=== PATIENT | male | born 1950 | race Caucasian/White ===

== ENCOUNTER 2016-12-17 08:39 | Day surgery (SDC) | payer MEDICARE, BC ==
[~2016-12-17 08:39] MED LIST: Cefuroxime 10 MG/ML SYRINGE EYERT SCH; Lidocaine 1% PF 2 ML SDV INJECT SCH; Pilocarpine 4% Ophth Soln 15 ML Bot EYERT SCH; Proparacaine 0.5% Ophth Soln 15 ML Bottle EYEBOTH SCH; Tetracaine 0.5% 2 ML Bottle EYERT SCH
[2016-12-17] MEDS: Polymyxin B/Trimethoprim 10 ML Bottle EYERT SCH ×3 (09:17→10:52)
[2016-12-17] MEDS: Brimonidine 0.2% Ophth Soln 5 ML Bottle EYERT SCH ×3 (09:23→10:52)
[2016-12-17] MEDS: Phenylephrine 2.5% Ophth Soln 2 ML Bot EYERT SCH ×5 (09:27→10:38)
--- NOTE | 2016-12-17 10:14 | PCM.PREANE ---
Preanesthetic Assessment - Anesthesia/Transfusion/Family Hx Anesthesia History: Prior Anesthesia Without Reaction Family History of Anesthesia Reaction: No Transfusion History: No Prior Transfusion(s) Intubation History: Unknown - Review of Systems General: No Symptoms Pulmonary: No Symptoms Cardiovascular: No Symptoms Gastrointestinal: No symptoms Neurological: No Symptoms Other: Reports: None - Physical Assessment NPO Status Date: 12/16/16 NPO Status Time: 20:00 O2 Sat by Pulse Oximetry: 96 Respiratory Rate: 20 Vital Signs: Last Vital Signs Temp 36.2 C 12/17/16 09:10 Pulse 61 12/17/16 09:10 Resp 20 12/17/16 09:10 BP 129/73 12/17/16 09:10 Pulse Ox 96 12/17/16 09:10 Height: 1.93 m Weight: 97.522 kg ASA Class: 2 Mental Status: Alert & Oriented x3 Airway Class: Mallampati = 1 Dentition: Reports: Normal Dentition Thyro-Mental Finger Breadths: 3 Mouth Opening Finger Breadths: 5 ROM/Head Extension: Other Lungs: Clear to auscultation, Normal respiratory effort, Rhonchi Cardiovascular: Regular Rate, Regular Rhythm - Allergies Allergies/Adverse Reactions: Allergies Allergy/AdvReac Type Severity Reaction Status Date / Time hay fever Allergy Cannot Uncoded 12/16/16 13:22 Remember - Blood Blood Available: No - Anesthesia Plan Pre-Op Medication Ordered: None - Acknowledgements Anesthesia Type Planned: MAC Pt an Appropriate Candidate for the Planned Anesthesia: Yes Alternatives and Risks of Anesthesia Discussed w Pt/Guardian: Yes Pt/Guardian Understands and Agrees with Anesthesia Plan: Yes PreAnesthesia Questionnaire HEENT History: Reports: Other (see below) Other HEENT History: postnasal drip, nasal congestion Genitourinary History: Reports: BPH - SUBSTANCE USE Smoking Status *Q: Never Smoker Tobacco Use Within Last Twelve Months: Smokeless Tobacco Days Per Week of Alcohol Use: 0 - HOME MEDS Home Medications: Home Meds Aspirin 81 mg PO DAILY 12/16/16 [History] Finasteride 5 mg PO DAILY 12/16/16 [History] Moxifloxacin [Vigamox 0.5% Ophth Soln] 1 drop EYEBOTH ASDIRECTED 12/16/16 [ History] Multivitamin [Daily Amada] 1 tab PO DAILY 12/16/16 [History] Tamsulosin [Flomax] 0.4 mg PO DAILY 12/16/16 [History] - CURRENT (IN HOUSE) MEDS Current Meds: Current Medications Brimonidine Tartrate (Alphagan 0.2% Ophth Soln) 0 ml EYERT ASDIRECTED BINDU Stop: 12/17/16 18:00 Last Admin: 12/17/16 10:00 Dose: 1 drop Cefuroxime Sodium (Zinacef) 0 mg EYERT ASDIRECTED BINDU Stop: 12/17/16 18:00 Lidocaine HCl (Xylocaine-Mpf 1%) 10 ml INJECT ASDIRECTED BINDU Stop: 12/17/16 18:00 Phenylephrine HCl (Efraín-Synephrine 2.5% Ophth Soln) 0 ml EYERT ASDIRECTED BINDU Stop: 12/17/16 18:00 Last Admin: 12/17/16 10:07 Dose: 1 drop Pilocarpine HCl (Pilocar 4% Ophth Soln) 0 ml EYERT ASDIRECTED BINDU Stop: 12/17/16 18:00 Polymyxin/Trimethoprim Sulfate (Polytrim Ophth Soln) 0 ml EYERT ASDIRECTED BINDU Stop: 12/17/16 18:00 Last Admin: 12/17/16 09:55 Dose: 1 drop Proparacaine HCl (Proparacaine 0.5% Ophth Soln) 0 ml EYEBOTH ASDIRECTED BINDU Stop: 12/17/16 18:00 Tetracaine (Pontocaine 0.5% Ophth Drops) 0 ml EYERT ASDIRECTED BINDU Stop: 12/17/16 18:00 Tropicamide (Mydriacyl 1% Ophth Soln) 0 ml EYERT ASDIRECTED BINDU Stop: 12/17/16 18:00 Last Admin: 12/17/16 09:50 Dose: 1 drop
--- NOTE | 2016-12-17 10:49 | PCM48HPAN ---
Post Anesthesia Note - EVALUATION WITHIN 48HRS OF ANESTHETIC Vital Signs in Normal Range: Yes Patient Participated in Evaluation: Yes Respiratory Function Stable: Yes Airway Patent: Yes Cardiovascular Function Stable: Yes Hydration Status Stable: Yes Pain Control Satisfactory: Yes Nausea and Vomiting Control Satisfactory: Yes Mental Status Recovered: Yes
[2016-12-17 13:02] VITALS: BP 125/64
== END 2016-12-17 11:05 | disposition home or self-care (01) ==
LOC: JD.SDS 08:39
PROVIDERS: ATTEND Ophthalmology
PROC: 08RJ3JZ Replacement of Right Lens with Synthetic Substitute, Percutaneous Approach (ICD-10-PCS; principal; 2016-12-17)
DX: H25.811 Combined forms of age-related cataract, right eye (principal); H35.40 Unspecified peripheral retinal degeneration; H02.831 Dermatochalasis of right upper eyelid; H02.834 Dermatochalasis of left upper eyelid; I10 Essential (primary) hypertension; N40.0 Benign prostatic hyperplasia without lower urinary tract symptoms; F17.290 Nicotine dependence, other tobacco product, uncomplicated; Z83.518 Family history of other specified eye disorder; Z79.82 Long term (current) use of aspirin; Z91.048 Other nonmedicinal substance allergy status
CPT/HCPCS: 66984; A9270; J0697; V2632

== ENCOUNTER 2017-01-14 07:17 | Day surgery (SDC) | payer MEDICARE, BC ==
[~2017-01-14 07:17] MED LIST changes: +Cefuroxime 10 MG/ML SYRINGE EYELF SCH; -Cefuroxime 10 MG/ML SYRINGE EYERT SCH; +Pilocarpine 4% Ophth Soln 15 ML Bot EYELF SCH; -Pilocarpine 4% Ophth Soln 15 ML Bot EYERT SCH; -Proparacaine 0.5% Ophth Soln 15 ML Bottle EYEBOTH SCH; +Tetracaine 0.5% 2 ML Bottle EYELF SCH; -Tetracaine 0.5% 2 ML Bottle EYERT SCH
[2017-01-14] MEDS: Polymyxin B/Trimethoprim 10 ML Bottle EYELF SCH ×3 (07:29→08:58)
[2017-01-14] MEDS: Brimonidine 0.2% Ophth Soln 5 ML Bottle EYELF SCH ×3 (07:33→08:58)
[2017-01-14] MEDS: Phenylephrine 2.5% Ophth Soln 2 ML Bot EYELF SCH ×5 (07:37→08:40)
--- NOTE | 2017-01-14 07:37 | PCM.PREANE ---
Preanesthetic Assessment - Anesthesia/Transfusion/Family Hx Anesthesia History: Prior Anesthesia Without Reaction Family History of Anesthesia Reaction: No Transfusion History: No Prior Transfusion(s) Intubation History: Unknown - Review of Systems General: No Symptoms Pulmonary: No Symptoms Cardiovascular: No Symptoms, Other (HTN) Gastrointestinal: Other (reflux on occasion) Neurological: No Symptoms - Physical Assessment NPO Status Date: 01/13/17 NPO Status Time: 19:00 Pulse: 59 O2 Sat by Pulse Oximetry: 98 Respiratory Rate: 16 Blood Pressure: 120/76 Temperature: 36.2 C Height: 1.93 m Weight: 97.522 kg ASA Class: 2 Mental Status: Alert & Oriented x3 Airway Class: Mallampati = 1 Dentition: Reports: Normal Dentition Thyro-Mental Finger Breadths: 3 Mouth Opening Finger Breadths: 3 ROM/Head Extension: Full Lungs: Clear to auscultation, Normal respiratory effort Cardiovascular: Regular Rate, Regular Rhythm - Allergies Allergies/Adverse Reactions: Allergies Allergy/AdvReac Type Severity Reaction Status Date / Time hay fever Allergy Cannot Uncoded 01/13/17 15:15 Remember - Blood Blood Available: No Product(s) Available: None - Anesthesia Plan Pre-Op Medication Ordered: None - Acknowledgements Anesthesia Type Planned: MAC Pt an Appropriate Candidate for the Planned Anesthesia: Yes Alternatives and Risks of Anesthesia Discussed w Pt/Guardian: Yes Pt/Guardian Understands and Agrees with Anesthesia Plan: Yes PreAnesthesia Questionnaire HEENT History: Reports: Other (See Below) Other HEENT History: postnasal drip, nasal congestion Genitourinary History: Reports: BPH - SUBSTANCE USE Smoking Status *Q: Never Smoker Tobacco Use Within Last Twelve Months: Smokeless Tobacco Days Per Week of Alcohol Use: 0 - HOME MEDS Home Medications: Home Meds Aspirin 81 mg PO DAILY 12/16/16 [History] Finasteride 5 mg PO DAILY 12/16/16 [History] Moxifloxacin [Vigamox 0.5% Ophth Soln] 1 drop EYEBOTH ASDIRECTED 12/16/16 [ History] Multivitamin [Daily Amada] 1 tab PO DAILY 12/16/16 [History] Tamsulosin [Flomax] 0.4 mg PO DAILY 12/16/16 [History] - CURRENT (IN HOUSE) MEDS Current Meds: Current Medications Brimonidine Tartrate (Alphagan 0.2% Ophth Soln) 0 ml EYELF ASDIRECTED BINDU Stop: 01/14/17 18:00 Cefuroxime Sodium (Zinacef) 0 mg EYELF ASDIRECTED BINDU Stop: 01/14/17 18:00 Lidocaine HCl (Xylocaine-Mpf 1%) 1 ml INJECT ASDIRECTED BINDU Stop: 01/14/17 18:00 Phenylephrine HCl (Efraín-Synephrine 2.5% Ophth Soln) 0 ml EYELF ASDIRECTED BINDU Stop: 01/14/17 18:00 Pilocarpine HCl (Pilocar 4% Ophth Soln) 0 ml EYELF ASDIRECTED BINDU Stop: 01/14/17 18:00 Polymyxin/Trimethoprim Sulfate (Polytrim Ophth Soln) 0 ml EYELF ASDIRECTED BINDU Stop: 01/14/17 18:00 Last Admin: 01/14/17 07:29 Dose: 1 drop Tropicamide (Mydriacyl 1% Ophth Soln) 0 ml EYELF ASDIRECTED BINDU Stop: 01/14/17 18:00 Discontinued Medications Tetracaine (Pontocaine 0.5% Ophth Drops) 0 ml EYELF ASDIRECTED BINDU Stop: 01/14/17 06:01
[2017-01-14] MEDS ORDERED: Tetracaine 0.5% 2 ML Bottle EYELF SCH (08:45)
[2017-01-14 09:12] VITALS: BP 127/65
== END 2017-01-14 09:10 | disposition home or self-care (01) ==
LOC: JD.SDS 07:17
PROVIDERS: ATTEND Ophthalmology
DX: H25.812 Combined forms of age-related cataract, left eye (principal); I10 Essential (primary) hypertension; Z96.1 Presence of intraocular lens; Z98.41 Cataract extraction status, right eye; Z79.899 Other long term (current) drug therapy
CPT/HCPCS: 66984; A9270; J0697; C1780

== ENCOUNTER → 2020-03-23 | Day surgery (SDC) | payer MEDICARE, BC ==
[~2020-03-23] MED LIST changes: +Brimonidine 0.2% Ophth Soln 5 ML Bottle EYELF SCH; -Cefuroxime 10 MG/ML SYRINGE EYELF SCH; -Lidocaine 1% PF 2 ML SDV INJECT SCH; +Phenylephrine 2.5% Ophth Soln 2 ML Bot EYELF SCH; -Pilocarpine 4% Ophth Soln 15 ML Bot EYELF SCH; -Tetracaine 0.5% 2 ML Bottle EYELF SCH; +Tropicamide 1% Ophth Soln 15 ML Bottle EYELF SCH
[2020-03-23 13:01] VITALS: BP 127/68; PULSE 72
== END ==
LOC: JD.SDS 11:53
PROVIDERS: ATTEND Ophthalmology
DX: H26.492 Other secondary cataract, left eye (principal); H35.033 Hypertensive retinopathy, bilateral; H35.373 Puckering of macula, bilateral; H02.834 Dermatochalasis of left upper eyelid; H02.831 Dermatochalasis of right upper eyelid; H35.40 Unspecified peripheral retinal degeneration; H16.103 Unspecified superficial keratitis, bilateral; H16.223 Keratoconjunctivitis sicca, not specified as Sjogren's, bilateral; E78.00 Pure hypercholesterolemia, unspecified; I10 Essential (primary) hypertension; Z79.899 Other long term (current) drug therapy; Z96.1 Presence of intraocular lens